=== PATIENT | female | born 1970 | race Caucasian/White ===

== ENCOUNTER → 2019-11-26 | Emergency (ER) | payer BC, OTHER ==
[~2019-11-26] VITALS: Ht 167.6 cm; Wt 81.6 kg
[~2019-11-26] MED LIST: ASPirin 81 mg TAB PO ONE; LABETALOL HCL 5 MG/ML 4ML SYRINGE IV ONE
[2019-11-26 09:26] VITALS: BP 135/57
[2019-11-26 09:31] LABS: Basophils # (auto) 0.1 10 ^3/uL (0-0.2); Basophils % (auto) 1.4 % (0.0-2.0); Eosinophils # (auto) 0.1 10 ^3/uL (0-0.8); Eosinophils % (auto) 4.2 % (0.0-7.0); Hematocrit 34.2 % (36.0-46.0); Hemoglobin 11.3 g/dL (12.2-16.2); Lymphocytes # (auto) 0.8 10 ^3/uL (0.4-5.4); Lymphocytes % (auto) 22.1 % (10.0-50.0); Mean Corpuscular Volume 93.9 fL (80.0-100.0); Monocytes # (auto) 0.4 10 ^3/uL (0-1.3); Monocytes % (auto) 10.5 % (0.0-12.0); Neutrophils # (auto) 2.2 10 ^3/uL (1.6-8.6); Neutrophils % (auto) 61.8 % (37.0-80.0); Platelet Count (auto) 271 10^3/uL (140-450); Red Blood Cells 3.64 10^6/uL (4.0-5.20); Red Cell Distribution Width 18.3 % (11.8-14.3); White Blood Cell 3.5 10^3/uL (4.4-10.8)
[2019-11-26 09:56] LABS: Alanine Aminotransferase 19 U/L (13-56); Albumin 3.5 g/dL (3.4-5.0); Anion Gap 8 (5-15); Aspartate Aminotransferase 15 U/L (15-37); BUN/Creatinine Ratio 16.9; Blood Urea Nitrogen 14 mg/dL (7-18); Calcium 8.5 mg/dL (8.5-10.1); Carbon Dioxide 25 mmol/L (21-32); Chloride 106 mmol/L (98-107); GFR African American 93 mL/min; GFR Non-African American 77 mL/min; Glucose 103 mg/dL (74-106); Potassium 3.6 mmol/L (3.5-5.1); Sodium 139 mmol/L (136-145)
[2019-11-26 10:01] LABS: Alkaline Phosphatase 62 U/L (45-117); Bilirubin, Total 0.8 mg/dL (0.2-1.0); Total Protein 6.9 g/dL (6.4-8.2)
[2019-11-26 10:10] LABS: Urine WBC None Seen /hpf (0 - 5)
[2019-11-26 10:18] LABS: Urine Bacteria NONE SEEN /hpf (None Seen); Urine Blood Negative /uL (Negative); Urine Specific Gravity 1.006 (1.001-1.035)
== END | disposition home or self-care (01) ==
LOC: ER 08:56
DX: R07.89 Other chest pain (principal); J45.909 Unspecified asthma, uncomplicated
CPT/HCPCS: 36415; 71045; 80053; 81001; 84484; 85025; 93005

== ENCOUNTER 2020-07-28 15:14 | Emergency (ER) | payer BC, OTHER ==
[~2020-07-28] VITALS: Ht 167.6 cm; Wt 81.6 kg
[2020-07-28 15:49] VITALS: BP 132/56
[2020-07-28] MEDS ORDERED: KETOROLAC TROMETH 60MG/2ML VIAL IM ONE (17:00)
== END 2020-07-28 17:41 | disposition home or self-care (01) ==
LOC: ER 15:14
DX: S76.012A Strain of muscle, fascia and tendon of left hip, initial encounter (principal); S80.02XA Contusion of left knee, initial encounter; J45.909 Unspecified asthma, uncomplicated; W01.0XXA Fall on same level from slipping, tripping and stumbling without subsequent striking against object, initial encounter; Y93.89 Activity, other specified; Y92.89 Other specified places as the place of occurrence of the external cause; Y99.8 Other external cause status
CPT/HCPCS: 73502; 73562; 96372; 99284; J1885

== ENCOUNTER 2020-08-17 19:25 | Emergency (ER) | payer MEDICAID, OTHER ==
[~2020-08-17] VITALS: Ht 167.6 cm; Wt 81.6 kg
[2020-08-17 20:00] VITALS: BP 131/76
== END 2020-08-17 20:13 | disposition home or self-care (01) ==
LOC: ER 19:26
DX: S76.012A Strain of muscle, fascia and tendon of left hip, initial encounter (principal); Z88.2 Allergy status to sulfonamides; W19.XXXA Unspecified fall, initial encounter; Y93.89 Activity, other specified; Y92.89 Other specified places as the place of occurrence of the external cause; Y99.8 Other external cause status

== ENCOUNTER 2020-10-24 12:16 | Inpatient (IN) | payer OTHER ==
[~2020-10-24] VITALS: Ht 167.6 cm; Wt 77.7 kg
[2020-10-24] MEDS ORDERED: IODIXANOL 320MG/ML 100ML BTL IV ONE (13:31)
[2020-10-24] MEDS: PANTOPRAZOLE 40 MG TAB PO SCH ×2 (16:19→21:59)
[2020-10-24] MEDS ORDERED: MORPHINE SULFATE INJECTION 2 MG/ML SYRG IV PRN (17:15)
[2020-10-24] MEDS ORDERED: NITROGLYCERIN 0.4 MG SL TAB SL PRN (17:15)
[2020-10-24 17:20] LABS: Basophils # (auto) 0 10 ^3/uL (0-0.2); Eosinophils # (auto) 0 10 ^3/uL (0-0.8); Hemoglobin 12.5 g/dL (12.2-16.2); Monocytes # (auto) 0.1 10 ^3/uL (0-1.3); Neutrophils # (auto) 3.7 10 ^3/uL (1.6-8.6); Nucleated Red Blood Cells % 0.1 %
[2020-10-24 17:22] LABS: Basophils % (auto) 0.1 % (0.0-2.0); Eosinophils % (auto) 0.2 % (0.0-7.0); Hematocrit 35.8 % (36.0-46.0); Lymphocytes # (auto) 0.3 10 ^3/uL (0.4-5.4); Mean Corpuscular Hemoglobin 35.7 pg (28.0-32.0); Mean Corpuscular Hgb Conc. 34.8 g/dL (32.0-36.0); Mean Corpuscular Volume 102.6 fL (80.0-100.0); Monocytes % (auto) 3.1 % (0.0-12.0); Neutrophils % (auto) 88.6 % (37.0-80.0); Red Blood Cells 3.49 10^6/uL (4.0-5.20); Red Cell Distribution Width 15.9 % (11.8-14.3); White Blood Cell 4.1 10^3/uL (4.4-10.8)
[2020-10-24 17:40] LABS: Albumin 3.4 g/dL (3.4-5.0); Calcium 9.3 mg/dL (8.5-10.1); Potassium 3.9 mmol/L (3.5-5.1)
[2020-10-24 17:43] LABS: BUN/Creatinine Ratio 28.3; Bilirubin, Total 1.1 mg/dL (0.2-1.0); Total Protein 6.5 g/dL (6.4-8.2)
[2020-10-24] MEDS: ONDANSETRON HCL 4 MG/2 ML VIAL IV PRN (18:19)
[2020-10-24] MEDS: MORPHINE SULFATE INJECTION 2 MG/ML SYRG IV PRN ×2 (18:20→21:59)
[2020-10-24 21:22] LABS: Urine Bacteria NONE SEEN /hpf (None Seen); Urine Blood Negative /uL (Negative); Urine Mucus FEW (None Seen); Urine WBC 2 /hpf (0 - 5)
[2020-10-24 21:23] LABS: Urine Specific Gravity > 1.050 (1.001-1.035)
[2020-10-25] MEDS: ONDANSETRON HCL 4 MG/2 ML VIAL IV PRN ×2 (06:26→17:47)
[2020-10-25] MEDS ORDERED: SODIUM CHLORIDE LOCK 10 ML ONE (08:55)
[2020-10-25] MEDS ORDERED: diphenhdrAMINE HCL 50 MG/1 ML VL ONE (08:55)
[2020-10-25] MEDS ORDERED: LIDOCAINE VISCOUS 2% 15ML UD ONE (08:55)
[2020-10-25] MEDS ORDERED: FLUMAZENIL 0.1 MG/ML INJ 10ML MDV IV ONE (09:02)
[2020-10-25] MEDS ORDERED: NALOXONE HCL 0.4 MG/ML VIAL ONE (09:02)
[2020-10-25] MEDS: predniSONE 5 MG TAB PO SCH (09:27)
[2020-10-25] MEDS: PANTOPRAZOLE 40 MG TAB PO SCH ×2 (09:27→21:34)
[2020-10-25] MEDS: hydrOXYchloroQUINE SULFATE 200 MG TAB PO SCH (09:27)
[2020-10-25] MEDS ORDERED: RIZA10TA12 PO (12:15)
[2020-10-25] MEDS ORDERED: OMEP20TA PO (12:15)
[2020-10-25] MEDS ORDERED: GABA300C10 PO (12:15)
[2020-10-25] MEDS ORDERED: AZAT50TA2 PO (12:15)
[2020-10-25] MEDS ORDERED: LIOT5TAB20 PO (12:15)
[2020-10-25] MEDS ORDERED: LEVO125T7 PO (12:15)
[2020-10-25] MEDS ORDERED: HYDR-4188 OR (12:15)
[2020-10-25] MEDS ORDERED: PRED10TA PO (12:15)
[2020-10-25 12:50] VITALS: BP 100/66
[2020-10-25] MEDS: MIDAZOLAM HCL 5 MG/ML-1ML VIAL ONE ×2 (13:10→13:14)
[2020-10-25] MEDS: fentaNYL CITRATE 100 MCG/2 ML VL ONE ×2 (13:10→13:14)
[2020-10-25 16:26] VITALS: BP 95/56
[2020-10-25] MEDS: SUCRALFATE 1 GM/10 ML ORAL SUSP PO SCH ×2 (17:00→21:34)
[2020-10-25 21:49] VITALS: BP 110/70
[2020-10-26 05:20] VITALS: BP 88/52
[2020-10-26 05:45] LABS: Basophils # (auto) 0 10 ^3/uL (0-0.2); Eosinophils # (auto) 0.1 10 ^3/uL (0-0.8); Hematocrit 34.1 % (36.0-46.0); Monocytes # (auto) 0.3 10 ^3/uL (0-1.3); Neutrophils # (auto) 1.7 10 ^3/uL (1.6-8.6); Red Blood Cells 3.32 10^6/uL (4.0-5.20); White Blood Cell 3.1 10^3/uL (4.4-10.8)
[2020-10-26 05:48] LABS: Basophils % (auto) 0.7 % (0.0-2.0); Eosinophils % (auto) 3.7 % (0.0-7.0); Lymphocytes % (auto) 31.2 % (10.0-50.0); Mean Corpuscular Hemoglobin 36.3 pg (28.0-32.0); Mean Corpuscular Hgb Conc. 35.3 g/dL (32.0-36.0); Mean Corpuscular Volume 102.9 fL (80.0-100.0); Monocytes % (auto) 8.5 % (0.0-12.0); Neutrophils % (auto) 55.9 % (37.0-80.0); Nucleated Red Blood Cells % 0.5 %; Red Cell Distribution Width 16.1 % (11.8-14.3)
[2020-10-26 06:13] LABS: Calcium 7.9 mg/dL (8.5-10.1); Potassium 3.5 mmol/L (3.5-5.1)
[2020-10-26 06:17] LABS: BUN/Creatinine Ratio 23.1
[2020-10-26] MEDS: SUCRALFATE 1 GM/10 ML ORAL SUSP PO SCH ×2 (06:33→11:30)
[2020-10-26 06:34] VITALS: BP 100/60
[2020-10-26 09:00] VITALS: BP 97/56
[2020-10-26] MEDS: PANTOPRAZOLE 40 MG TAB PO SCH (09:29)
[2020-10-26] MEDS: predniSONE 5 MG TAB PO SCH (09:29)
[2020-10-26] MEDS: hydrOXYchloroQUINE SULFATE 200 MG TAB PO SCH (09:29)
[2020-10-26] MEDS ORDERED: PANT40TA2 PO (10:15)
[2020-10-26] MEDS ORDERED: ONDA-144 PO (10:15)
[2020-10-26] MEDS ORDERED: SUCR1SUS10 PO (10:22)
[2020-10-26 13:00] VITALS: BP 101/71
== END 2020-10-26 14:07 | disposition home or self-care (01) | DRG 392 ==
LOC: ER 12:16 → OVERFLOW 17:01 → TELE-CENTR 10-25 10:13
PROVIDERS: ADMIT Nurse Practitioner Acute Care; ATTEND Internal Medicine Pulmonary Disease
PROC: 0DB68ZX Excision of Stomach, Via Natural or Artificial Opening Endoscopic, Diagnostic (ICD-10-PCS; principal; 2020-10-25 13:05)
DX: K29.70 Gastritis, unspecified, without bleeding (principal); K20.90 Esophagitis, unspecified without bleeding; M06.9 Rheumatoid arthritis, unspecified; E03.9 Hypothyroidism, unspecified; Z20.822 Contact with and (suspected) exposure to COVID-19; J45.909 Unspecified asthma, uncomplicated; M19.90 Unspecified osteoarthritis, unspecified site; Z98.84 Bariatric surgery status; Z88.2 Allergy status to sulfonamides; Z79.899 Other long term (current) drug therapy
CPT/HCPCS: 36415; 43239; 74177; 80048; 80053; 81001; 84443; 85025; 85610; 87426; G0378; J2250; J2405; Q9967